=== PATIENT | male | born 1945 | race Caucasian/White ===

== ENCOUNTER 2019-08-06 11:46 | Emergency (ER) | payer OTHER ==
[2019-08-06 12:35] LABS: Urine RBC NONE SEEN /HPF (NONE SEEN)
[2019-08-06 12:36] LABS: Urine Bacteria <20 /HPF (NONE SEEN); Urine Culture Reflex Order NOT NEEDED
[2019-08-06 12:37] LABS: Basophils % 0.4 % (0-1.3); Hematocrit 45.9 % (39.6-49.0); Lymphocytes % 7.8 % (15.3-44.8); MPV 6.9 fL (7.6-11.3); RBC Red Blood Cell Count 4.87 M/uL (4.33-5.43)
[2019-08-06 12:42] LABS: Albumin 3.4 g/dL (3.4-5.0); Bilirubin Direct 0.3 mg/dL (0-0.2); Protein, Total 7.1 g/dL (6.4-8.2)
[2019-08-06 12:47] LABS: Urine Blood NEGATIVE (NEG); Urine Glucose NEGATIVE (NEG); Urine Protein NEGATIVE (NEG); Urine Specific Gravity 1.025 (1.005-1.030); Urine pH 5.5 (5.0-7.0)
--- NOTE | 2019-08-06 14:00 | RAD REPORT ---
EXAM DESCRIPTION: CTAbdomen Pelvis W Contrast - 08/06/2019 1:20 pm CLINICAL HISTORY: Abdominal pain. urinary retention COMPARISON: No comparisons TECHNIQUE: Biphasic CT imaging of the abdomen and pelvis was performed with 100 ml non-ionic IV cont rast. All CT scans are performed using dose optimization technique as appropriate and may include automated exposure control or mA/KV adjustment according to patient size. FINDINGS: Emphysematous changes are present in both lung bases. Vague areas subpleural nodularity ar e present bilaterally, greatest in the right lateral gutter measuring 12 mm. Mild fatty liver is seen with 32 mm cyst in the right lobe anteriorly. Small hiatal hernia. The splee n, pancreas, right adrenal gland and kidneys are within normal limits. No hydronephrosis. Small benig n renal cyst. Left adrenal gland thickening is present. There is a large amount of stool seen in the colon. Thickening of the rectosigmoid colon wall is pres ent. There is asymmetric thickening seen in the rectal region with the posterior rectal wall thickene d up to 20 mm. Catheter is in place in the urinary bladder decompressing the bladder. No intra-abdomi nal abscess seen. No free intraperitoneal air suspected. The appendix is normal. Fat containing bila teral inguinal hernias. No evidence of significant lymphadenopathy. Degenerative changes are present lumbar spine with vacuum disc degeneration at L5-S1. Heavy atheroscl erosis of the aorta and branch vessels. IMPRESSION: Thickening of the rectal wall was seen in an asymmetric fashion measure up to 20 mm post eriorly. Followup colonoscopy is recommended as neoplastic etiology is a possibility. Prominent fecal retention throughout the colon seen. Urinary bladder is decompressed by means of a Porter catheter. No hydronephrosis.
--- NOTE | 2019-08-06 14:18 | ER ---
Nurse's Notes [facility] Name: Huseyin Thompson Age: 74 yrs Sex: Male : 1945 Arrival Date: 08/06/2019 Time: 11:48 Bed 13 Private MD: Diagnosis: Retention of urine;Crohn's disease [regional enteritis];Constipation Presentation: 08/05 11:57 Chief complaint: Patient states: URINARY RETENTION x1.5 DAYS. Coronavirus screen: bp Proceed with normal triage. Ebola Screen: No symptoms or risks identified at this time. Initial Sepsis Screen: Does the patient meet any 2 criteria? No. Patient's initial sepsis screen is negative. Does the patient have a suspected source of infection? No. Patient's initial sepsis screen is negative. Risk Assessment: Do you want to hurt yourself or someone else? Patient reports no desire to harm self or others. Onset of symptoms is unknown. 11:57 Method Of Arrival: Wheelchair bp 11:57 Acuity: ANAM 3 bp Triage Assessment: 11:59 General: Appears in no apparent distress. uncomfortable, Behavior is cooperative, bp appropriate for age, anxious. Pain: Complains of pain in pelvis. EENT: No deficits noted. Neuro: No deficits noted. Cardiovascular: No deficits noted. Respiratory: No deficits noted. GI: No signs and/or symptoms were reported involving the gastrointestinal system. : Reports inability to void. Derm: No deficits noted. Musculoskeletal: No deficits noted. Historical: - Allergies: 11:59 No Known Allergies; bp - Home Meds: 11:59 Humira subcutaneous subcutaneous [Active]; Prednisone Oral [Active]; bp - PMHx: 11:59 Crohn's; bp - Immunization history:: Adult Immunizations unknown. - Social history:: Smoking status: Patient reports the use of cigarette tobacco products, unknown amount. Screenin:08 Abuse screen: Denies threats or abuse. Denies injuries from another. Nutritional bp screening: No deficits noted. Tuberculosis screening: No symptoms or risk factors identified. Fall Risk None identified. Assessment: 12:00 General: SEE TRIAGE NOTE. bp 13:30 Reassessment: S/S RELIEVED WITH DEL CASTILLO DRAINAGE. CT RESULTS PENDING. bp 14:45 Reassessment: PT D/C HOME AMBULATORY. DEL CASTILLO CHANGED TO LEG BAG. DX WITH URINARY bp RETENTION. Vital Signs: 11:57 BP 182 / 92; Pulse 97; Resp 16; Temp 98; Pulse Ox 98% ; Weight 83.91 kg; Height 5 ft. 8 bp in. (172.72 cm); 12:20 BP 116 / 68; Pulse 93; Resp 15; Pulse Ox 96% ; bp 13:16 BP 143 / 73; Pulse 74; Resp 16; Pulse Ox 94% on R/A; mh5 11:57 Body Mass Index 28.13 (83.91 kg, 172.72 cm) bp ED Course: 11:48 Patient arrived in ED. ag5 11:50 Devan Mcqueen, RAFAEL is PHCP. pm1 11:50 Roddy Moseley MD is Attending Physician. pm1 11:57 Jluis Rubin, SOLEDAD is Primary Nurse. bp 11:58 Triage completed. bp 11:59 Arm band placed on. bp 12:08 Patient has correct armband on for positive identification. Bed in low position. Call bp light in reach. Side rails up X2. 12:08 Bladder scan completed. 825 ML. Coud inserted, using sterile technique, 14 Fr. bp Returned cloudy urine. To gravity drainage. Urine specimen collected. 12:12 Radiology exam delayed due to lab results not completed at this time. (BUN/Creatinine). bq 12:20 Inserted saline lock: 20 gauge in right forearm, using aseptic technique. Blood bp collected. 12:21 Urine collected: Del Castillo catheter specimen, clear. mh5 13:20 CT completed. Patient tolerated procedure well. Patient moved back from CT. bq 13:21 CT Abd/Pelvis - IV Contrast Only In Process Unspecified. EDMS 14:43 IV discontinued, Pressure dressing applied. LEG BAG. mh5 14:48 No provider procedures requiring assistance completed. bp 14:48 IV discontinued, intact, bleeding controlled, No redness/swelling at site. Pressure bp dressing applied. Administered Medications: 14:45 Drug: Potassium Effervescent Tablet 50 mEq Route: PO; bp 14:48 Follow up: Response: No adverse reaction bp Outcome: 14:18 Discharge ordered by MD. pm1 14:47 Discharged to home ambulatory. bp 14:47 Condition: stable 14:47 Discharge instructions given to patient, Instructed on discharge instructions, follow up and referral plans. medication usage, Demonstrated understanding of instructions, follow-up care, medications, Prescriptions given X 2. 14:49 Patient left the ED. bp Signatures: Dispatcher [employer] EDElvi Emery Patrick, RAFAEL TALENT ACQUISITION DIRECTOR [email or web address] Mirtha Molina 5 Jluis Rubin, RN RN bp Miguel Gomez ag5
--- NOTE | 2019-08-06 14:18 | EDPHYS ---
Physician Documentation [facility] Name: Huseyin Thompson Age: 74 yrs Sex: Male : 1945 Arrival Date: 08/06/2019 Time: 11:48 Bed 13 Private MD: ED Physician Roddy Moseley HPI: 08/05 12:06 This 74 yrs old Male presents to ER via Wheelchair with complaints of Urinary Problem. pm1 12:06 The patient presents with urinary symptoms, retention. Onset: The symptoms/episode pm1 began/occurred 1.5 day(s) ago. Modifying factors: The symptoms are alleviated by a little urination. Reports dribbling, the symptoms are aggravated by nothing. Associated signs and symptoms: Pertinent negatives: constipation, diarrhea, fever, nausea, vomiting. Severity of symptoms: in the emergency department the symptoms are actually worse. no retention in the past, but has had to urinate multiple times throughout the night for several years. The patient has not recently seen a physician, out of town, in just moved to the area 1.5 weeks ago. Historical: - Allergies: 11:59 No Known Allergies; bp - Home Meds: 11:59 Humira subcutaneous subcutaneous [Active]; Prednisone Oral [Active]; bp - PMHx: 11:59 Crohn's; bp - Immunization history:: Adult Immunizations unknown. - Social history:: Smoking status: Patient reports the use of cigarette tobacco products, unknown amount. ROS: 12:06 Constitutional: Negative for fever, chills, and weight loss, Cardiovascular: Negative pm1 for chest pain, palpitations, and edema, Respiratory: Negative for shortness of breath, cough, wheezing, and pleuritic chest pain. 12:06 Back: Negative for injury and pain. 12:06 MS/Extremity: Negative for injury and deformity, Skin: Negative for injury, rash, and discoloration, Neuro: Negative for headache, weakness, numbness, tingling, and seizure. 12:06 Abdomen/GI: Positive for abdominal pain, of the suprapubic area, Negative for nausea, vomiting, and diarrhea, constipation. 12:06 : Positive for difficulty urinating, retention , Negative for flank pain, burning with urination. Exam: 12:06 Constitutional: This is a well developed, well nourished patient who is awake, alert, pm1 and in no acute distress. Head/Face: Normocephalic, atraumatic. Neck: Trachea midline, no thyromegaly or masses palpated, and no cervical lymphadenopathy. Supple, full range of motion without nuchal rigidity, or vertebral point tenderness. No Meningismus. Chest/axilla: Normal chest wall appearance and motion. Nontender with no deformity. No lesions are appreciated. Cardiovascular: Regular rate and rhythm with a normal S1 and S2. No gallops, murmurs, or rubs 12:06 Back: No spinal tenderness. No costovertebral tenderness. Full range of motion. Skin: Warm, dry with normal turgor. Normal color with no rashes, no lesions, and no evidence of cellulitis. MS/ Extremity: Pulses equal, no cyanosis. Neurovascular intact. Full, normal range of motion. 12:06 Respiratory: the patient does not display signs of respiratory distress, Respirations: normal, no acute changes. 12:06 Abdomen/GI: Inspection: abdomen appears normal, Bowel sounds: normal, Palpation: soft, in all quadrants, mild abdominal tenderness, in the suprapubic area, mass, is not appreciated, rebound tenderness, is not appreciated. 12:06 Neuro: Exam negative for acute changes, Orientation: is normal, Motor: is normal, moves all fours. Vital Signs: 11:57 BP 182 / 92; Pulse 97; Resp 16; Temp 98; Pulse Ox 98% ; Weight 83.91 kg; Height 5 ft. 8 bp in. (172.72 cm); 12:20 BP 116 / 68; Pulse 93; Resp 15; Pulse Ox 96% ; bp 13:16 BP 143 / 73; Pulse 74; Resp 16; Pulse Ox 94% on R/A; mh5 11:57 Body Mass Index 28.13 (83.91 kg, 172.72 cm) bp MDM: 11:50 Patient medically screened. pm1 12:07 ED course: Bladder scanner 852 mL. pm1 12:28 Data reviewed: vital signs. Data interpreted: Pulse oximetry: on room air is 96 %. pm1 Interpretation: normal. 14:17 Counseling: I had a detailed discussion with the patient and/or guardian regarding: the pm1 historical points, exam findings, and any diagnostic results supporting the discharge/admit diagnosis, lab results, radiology results, the need for outpatient follow up, a lacing cutter, a urologist, to return to the emergency department if symptoms worsen or persist or if there are any questions or concerns that arise at home. 08/05 11:55 Order name: Basic Metabolic Panel; Complete Time: 12:44 pm08/05 11:55 Order name: CBC with Diff; Complete Time: 12:44 pm08/05 11:55 Order name: Creatinine for Radiology; Complete Time: 12:44 pm08/05 11:55 Order name: Hepatic Function; Complete Time: 12:44 pm08/05 11:55 Order name: Lipase; Complete Time: 12:44 pm08/05 11:55 Order name: Urine Microscopic Only; Complete Time: 12:44 pm08/05 11:55 Order name: IV Saline Lock; Complete Time: 12:19 pm08/05 11:55 Order name: Labs collected and sent; Complete Time: 12:19 pm08/05 11:55 Order name: CT Abd/Pelvis - IV Contrast Only; Complete Time: 14:02 pm08/05 11:55 Order name: Bladder Scanner; Complete Time: 12:10 pm08/05 11:55 Order name: Porter; Complete Time: 12:10 pm08/05 11:55 Order name: Urine Dipstick-Ancillary (obtain specimen); Complete Time: 12:18 pm08/05 12:24 Order name: Urine Dipstick--Ancillary (enter results); Complete Time: 12:54 eb Administered Medications: 14:45 Drug: Potassium Effervescent Tablet 50 mEq Route: PO; bp 14:48 Follow up: Response: No adverse reaction bp Disposition: 15:40 Co-signature as Attending Physician, Roddy Moseley MD. rn Disposition: 08/06/19 14:18 Discharged to Home. Impression: Retention of urine, Crohn's disease [regional enteritis], Constipation. - Condition is Stable. - Discharge Instructions: Constipation, Adult, Crohn Disease, Porter Catheter Care, Adult, Acute Urinary Retention, Male. - Prescriptions for Bactrim DS 800- 160 mg Oral Tablet - take 1 tablet by ORAL route every 12 hours for 10 days; 20 tablet. Lactulose 10 gram/15 mL Oral Solution - take 30 milliliters by ORAL route once daily As needed; 300 milliliter. - Medication Reconciliation Form, Thank You Letter, Antibiotic Education, Prescription Opioid Use form. - Follow up: Emergency Department; When: As needed; Reason: Worsening of condition. Follow up: Private Physician; When: 2 - 3 days; Reason: Recheck today's complaints, Continuance of care, Re-evaluation by your physician. - Problem is new. - Symptoms have improved. Signatures: Dispatcher [employer] EDMS Roddy Moseley MD MD rn Marinas, Patrick, CRYSTAL MOUNTER CRYSTAL MOUNTER pm1 Jluis Rubin RN RN bp Corrections: (The following items were deleted from the chart) 14:21 14:18 08/06/2019 14:18 Discharged to Home. Impression: Retention of urine. Condition is pm1 Stable. Forms are Medication Reconciliation Form, Thank You Letter, Antibiotic Education, Prescription Opioid Use. Follow up: Emergency Department; When: As needed; Reason: Worsening of condition. Follow up: Private Physician; When: 2 - 3 days; Reason: Recheck today's complaints, Continuance of care, Re-evaluation by your physician. Problem is new. Symptoms have improved. pm1 14:29 14:21 08/06/2019 14:18 Discharged to Home. Impression: Retention of urine; Crohn's pm1 disease [regional enteritis]. Condition is Stable. Discharge Instructions: Porter Catheter Care, Adult, Acute Urinary Retention, Male, Crohn Disease. Prescriptions for Bactrim DS 800-160 mg Oral Tablet - take 1 tablet by ORAL route every 12 hours for 10 days; 20 tablet. and Forms are Medication Reconciliation Form, Thank You Letter, Antibiotic Education, Prescription Opioid Use. Follow up: Emergency Department; When: As needed; Reason: Worsening of condition. Follow up: Private Physician; When: 2 - 3 days; Reason: Recheck today's complaints, Continuance of care, Re-evaluation by your physician. Problem is new. Symptoms have improved. pm1 14:49 14:29 08/06/2019 14:18 Discharged to Home. Impression: Retention of urine; Crohn's bp disease [regional enteritis]; Constipation. Condition is Stable. Discharge Instructions: Porter Catheter Care, Adult, Acute Urinary Retention, Male, Crohn Disease. Prescriptions for Bactrim DS 800-160 mg Oral Tablet - take 1 tablet by ORAL route every 12 hours for 10 days; 20 tablet. and Forms are Medication Reconciliation Form, Thank You Letter, Antibiotic Education, Prescription Opioid Use. Follow up: Emergency Department; When: As needed; Reason: Worsening of condition. Follow up: Private Physician; When: 2 - 3 days; Reason: Recheck today's complaints, Continuance of care, Re-evaluation by your physician. Problem is new. Symptoms have improved. pm1
[2019-08-06] MEDS ORDERED: POTASSIUM 25 MEQ EFFERV TAB ONE (14:38)
[2019-08-06 15:09] VITALS: TEMP 98
[2019-08-06 15:12] VITALS: BP 143/73; O2SAT 94
== END 2019-08-06 14:49 | disposition home or self-care (01) ==
LOC: ER 11:46
DX: K59.00 Constipation, unspecified (principal); K50.90 Crohn's disease, unspecified, without complications; Z72.0 Tobacco use
CPT/HCPCS: 85025; 80048; 36415; 80076; 83690; 74177; 99285; Q9967; 81003; 81015

== ENCOUNTER 2019-11-30 10:13 | Observation (INO) | payer OTHER ==
[2019-11-30 10:58] LABS: Absolute Lymphocytes (CBC) 1.1 K/uL (0.7-4.9); Basophils % 0.3 % (0-1.3); Hematocrit 37.6 % (39.6-49.0); Lymphocytes % 9.2 % (15.3-44.8); MPV 7.5 fL (7.6-11.3)
[2019-11-30] MEDS ORDERED: NA CHLORIDE 0.9% 1,000 ML ONE ×2 (10:58→12:36)
[2019-11-30 10:59] LABS: Protime INR 1.23
--- NOTE | 2019-11-30 11:28 | RAD REPORT ---
EXAM DESCRIPTION: Julian Single View11/30/2019 11:20 am CLINICAL HISTORY: sob COMPARISON: none FINDINGS: The lungs appear clear of acute infiltrate. The heart is normal size IMPRESSION: No acute abnormalities displayed
[2019-11-30 11:46] LABS: Albumin 2.6 g/dL (3.4-5.0); Bilirubin Direct 0.2 mg/dL (0-0.2); Bilirubin Total 0.6 mg/dL (0.2-1.0); Magnesium 1.8 mg/dL (1.8-2.4); Protein, Total 6.3 g/dL (6.4-8.2); Troponin (Emerg Dept Use Only) 0.04 ng/mL (0.0-0.045)
[2019-11-30 11:47] LABS: Thyroid Stimulating Hormone 1.51 uIU/mL (0.360-3.740)
[2019-11-30 11:50] LABS: Potassium 2.5 mmol/L (3.5-5.1)
[2019-11-30] MEDS ORDERED: KCL 20 MEQ/100 mL IVPB 20 MEQ/100 ML BAG IV ONE (12:09)
[2019-11-30] MEDS ORDERED: ENOXAPARIN 80 MG/0.8 ML SQ ONE (12:09)
[2019-11-30] MEDS ORDERED: POTASSIUM CL SA 10 MEQ TAB PO ONE ×2 (12:09→18:00)
[2019-11-30] MEDS ORDERED: NA CHLORIDE 0.9% 250 ML ONE (12:10)
--- NOTE | 2019-11-30 12:10 | ER ---
Nurse's Notes [facility] Name: Huseyin Thompson Age: 74 yrs Sex: Male : 1945 Arrival Date: 11/30/2019 Time: 10:17 Bed 17 Private MD: Diagnosis: Atrial fibrillation and flutter-with RVR new onset;Hypotension;Hypokalemia Presentation: 11/29 10:21 Chief complaint: Patient states: Pt presents via EMS with reports of trip and fall with jr10 generalized weakness in driveway. Per EMS pt was laying in driveway for approx 45 mins after fall and was unable to get up. Pt AAOx4 upon arrival, denies LOC, denies the use of blood thinners. Pt noted to be in a fib upon arrival, denies any hx. Denies cp. Coronavirus screen: Client denies travel out of the [place] in the last 14 days. Patient denies a cough. Patient denies shortness of breath or difficulty breathing. Patient denies measured and/or subjective temperature greater than 100.4F prior to today's visit. Patient denies travel on a cruise ship or to a country the [facility] currently lists as an affected area. Patient denies contact with known and/or suspected case of COVID-19. At this time, the client does not indicate any symptoms associated with coronavirus-19. Ebola Screen: No symptoms or risks identified at this time. Initial Sepsis Screen: Does the patient meet any 2 criteria? HR > 90 bpm. Does the patient have a suspected source of infection? No. Patient's initial sepsis screen is negative. Risk Assessment: Do you want to hurt yourself or someone else? Patient reports no desire to harm self or others. Onset of symptoms was November 30, 2019. 10:21 Method Of Arrival: EMS: [facility] jr10 10:21 Acuity: ANAM 2 jr10 Historical: - Allergies: 10:23 No Known Allergies; jr10 - Home Meds: 10:23 Humira subcutaneous [Active]; Prednisone Oral [Active]; atorvastatin oral oral jr10 [Active]; Flagyl Oral [Active]; - PMHx: 10:23 Crohn's; jr10 - Immunization history:: Adult Immunizations up to date. - Social history:: Smoking status: Patient reports the use of cigarette tobacco products, smokes one pack cigarettes per day. Patient uses alcohol, weekly. Screenin:30 Abuse screen: Denies threats or abuse. Denies injuries from another. Nutritional jr10 screening: No deficits noted. Tuberculosis screening: No symptoms or risk factors identified. Fall Risk Fall in past 12 months (25 points). No secondary diagnosis (0 pts). IV access (20 points). Ambulatory Aid- None/Bed Rest/Nurse Assist (0 pts). Gait- Weak (10 pts.). Mental Status- Oriented to own ability (0 pts). Assessment: 10:24 General: Appears in no apparent distress. Behavior is calm, cooperative, appropriate jr10 for age. Pain: Denies pain. Neuro: No deficits noted. Cardiovascular: Denies chest pain, denies hx of a fib, currently noted to be in a fib rvr Capillary refill < 3 seconds Pulses are all present. Edema is absent. Rhythm is atrial fibrillation with rapid ventricular response Chest pain is denied. Respiratory: Reports shortness of breath at rest Airway is patent Respiratory effort is even, unlabored, Respiratory pattern is regular, symmetrical, Breath sounds are clear bilaterally. the patient has mild shortness of breath. GI: No deficits noted. Reports hx of crohns, denies any n/v/d at present. : No deficits noted. Derm: No deficits noted. Musculoskeletal: Reports weakness in generalized weakness. Injury Description: Abrasion sustained to palmar aspect of left forearm. 10:31 Reassessment: pt noted to be in a fib rvr upon arrival, provider notified and aware. jr10 EKG obtained upon arrival. 13:48 Reassessment: Patient appears in no apparent distress at this time. Patient and/or jr10 family updated on plan of care and expected duration. Pain level reassessed. Patient is alert, oriented x 3, equal unlabored respirations, skin warm/dry/pink. Patient states symptoms have improved. Vital Signs: 10:17 BP 99 / 59; Pulse 136; Resp 20; Pulse Ox 95% on R/A; Weight 77.11 kg; Pain 0/10; jr10 10:51 BP 117 / 49; Pulse 147; Resp 20; Pulse Ox 100% on R/A; Pain 0/10; jr10 11:18 BP 97 / 54; Pulse 107; Resp 20; Pulse Ox 96% on R/A; jr10 11:44 BP 121 / 53; Pulse 115; Resp 20; Pulse Ox 95% on R/A; Pain 0/10; jr10 12:15 BP 121 / 53; Pulse 118; Resp 22; Pulse Ox 97% on R/A; jr10 13:00 BP 121 / 72; Pulse 105; Resp 20; Pulse Ox 95% on R/A; Pain 0/10; jr10 13:00 BP 135 / 71; Pulse 90; Resp 20; Pulse Ox 98% on R/A; jr10 13:47 BP 118 / 83; Pulse 88; Resp 16; Pulse Ox 92% ; jr10 ED Course: 10:17 Patient arrived in ED. jr10 10:17 Jeffery Kearney PA is PHCP. jr8 10:17 Bert Valdovinos MD is Attending Physician. jr8 10:22 Triage completed. jr10 10:24 Arm band placed on. jr10 10:30 Patient has correct armband on for positive identification. Placed in gown. Bed in low jr10 position. Call light in reach. Side rails up X2. bow maker gift wrapping on. Pulse ox on. NIBP on. 10:44 Dianna Gill, SOLEDAD is Primary Nurse. jr10 10:50 No provider procedures requiring assistance completed. Inserted saline lock: 20 gauge jr10 in right forearm, using aseptic technique. ,using aseptic technique. started via Lorie, PCT Blood collected. IV is patent, is intact, with good blood return, Flushed. 11:20 XRAY Chest (1 view) In Process Unspecified. EDMS 12:08 Sinan Barcenas MD is Hospitalizing Provider. jr8 14:48 Echocardiogram with doppler done by e d tech. tc 15:04 Patient admitted, IV remains in place. intact, No redness/swelling at site. jr10 Administered Medications: 10:50 Drug: NS 0.9% 1000 ml Route: IV; Rate: 1000 ml; Site: right forearm; jr10 14:00 Follow up: Response: No adverse reaction; IV Status: Completed infusion jr10 12:09 Drug: Potassium Chloride 40 mEq Route: PO; jr10 12:42 Follow up: Response: No adverse reaction jr10 12:09 Drug: Potassium Chloride 20 mEq Route: IV; Rate: calculated rate; Site: right forearm; jr10 14:00 Follow up: Response: No adverse reaction; IV Status: Completed infusion jr10 12:11 Drug: Lovenox 1 mg/kg Route: Sub-Q; Site: abdomen; jr10 12:42 Follow up: Response: No adverse reaction jr10 12:30 Drug: Metoprolol 25 mg Route: PO; jr10 15:03 Follow up: Response: No adverse reaction jr10 12:30 Drug: NS 0.9% 1000 ml Route: IV; Rate: 75 ml/hr; Site: right forearm; jr10 15:02 Follow up: Response: No adverse reaction; IV Status: Infusion continued upon admission jr10 Outcome: 12:09 Decision to Hospitalize by Provider. jr8 15:10 Admitted to Med/surg accompanied by tech, via wheelchair, room 211, Report called to jr10 SOLEDAD [place] 15:10 Condition: improved 15:19 Patient left the ED. jr10 Signatures: Dispatcher [employer] EDMS Jeffery Kearney PA PA jr8 Janelle Le, silver solderer EKG Dianna Escalante, RN RN jr10 Corrections: (The following items were deleted from the chart) 12:10 12:10 Lovenox 1 mg/kg Sub-Q in abdomen jr10 jr10
--- NOTE | 2019-11-30 12:10 | EDPHYS ---
Physician Documentation [facility] Name: Huseyin Thompson Age: 74 yrs Sex: Male : 1945 Arrival Date: 11/30/2019 Time: 10:17 Bed 17 Private MD: ED Physician Bert Valdovinos HPI: 11/29 10:49 This 74 yrs old Male presents to ER via EMS with complaints of Fall . jr8 10:49 Details of fall: The patient fell from an upright position, while standing. Onset: The jr8 symptoms/episode began/occurred acutely, today. Associated injuries: The patient sustained no obvious injury. Severity of symptoms: At their worst the symptoms were mild, in the emergency department the symptoms are unchanged. The patient has not experienced similar symptoms in the past. The patient has not recently seen a physician. 11:32 Patient stated that he tripped while outside and fell. Could not get up so called 911. jr8 Stated that after they helped him up felt very weak and fatigued. Mild dizziness. EMS checked him out and found found that his BP was low. Was brought to hospital at that time. Patient denies hitting head or neck. No LOC. Denies any other symptoms at this time . Historical: - Allergies: 10:23 No Known Allergies; jr10 - Home Meds: 10:23 Humira subcutaneous [Active]; Prednisone Oral [Active]; atorvastatin oral oral jr10 [Active]; Flagyl Oral [Active]; - PMHx: 10:23 Crohn's; jr10 - Immunization history:: Adult Immunizations up to date. - Social history:: Smoking status: Patient reports the use of cigarette tobacco products, smokes one pack cigarettes per day. Patient uses alcohol, weekly. ROS: 11:32 Eyes: Negative for injury, pain, redness, and discharge, ENT: Negative for injury, jr8 pain, and discharge, Neck: Negative for injury, pain, and swelling, Cardiovascular: Negative for chest pain, palpitations, and edema, Respiratory: Negative for shortness of breath, cough, wheezing, and pleuritic chest pain, Abdomen/GI: Negative for abdominal pain, nausea, vomiting, diarrhea, and constipation, Back: Negative for injury and pain, MS/Extremity: Negative for injury and deformity, Skin: Negative for injury, rash, and discoloration. 11:32 Constitutional: Positive for fatigue. 11:32 Neuro: Positive for dizziness, weakness. Exam: 11:32 Eyes: Pupils equal round and reactive to light, extra-ocular motions intact. Lids and jr8 lashes normal. Conjunctiva and sclera are non-icteric and not injected. Cornea within normal limits. Periorbital areas with no swelling, redness, or edema. ENT: Nares patent. No nasal discharge, no septal abnormalities noted. Tympanic membranes are normal and external auditory canals are clear. Oropharynx with no redness, swelling, or masses, exudates, or evidence of obstruction, uvula midline. Mucous membranes moist. Neck: Trachea midline, no thyromegaly or masses palpated, and no cervical lymphadenopathy. Supple, full range of motion without nuchal rigidity, or vertebral point tenderness. No Meningismus. Respiratory: Lungs have equal breath sounds bilaterally, clear to auscultation and percussion. No rales, rhonchi or wheezes noted. No increased work of breathing, no retractions or nasal flaring. Abdomen/GI: Soft, non-tender, with normal bowel sounds. No distension or tympany. No guarding or rebound. No evidence of tenderness throughout. Back: No spinal tenderness. No costovertebral tenderness. Full range of motion. Skin: Warm, dry with normal turgor. Normal color with no rashes, no lesions, and no evidence of cellulitis. MS/ Extremity: Pulses equal, no cyanosis. Neurovascular intact. Full, normal range of motion. Neuro: Awake and alert, GCS 15, oriented to person, place, time, and situation. Cranial nerves II-XII grossly intact. Motor strength 5/5 in all extremities. Sensory grossly intact. Cerebellar exam normal. 11:32 Cardiovascular: Rate: tachycardic, Rhythm: irregularly irregular, Pulses: Pulses are 2+ in right radial artery and left radial artery. Heart sounds: normal, normal S1and S2, no S3 or S4, no murmur, no rub, no gallop, Edema: is not appreciated, JVD: is not appreciated. 11:36 ECG was reviewed by the Attending Physician. jr8 Vital Signs: 10:17 BP 99 / 59; Pulse 136; Resp 20; Pulse Ox 95% on R/A; Weight 77.11 kg; Pain 0/10; jr10 10:51 BP 117 / 49; Pulse 147; Resp 20; Pulse Ox 100% on R/A; Pain 0/10; jr10 11:18 BP 97 / 54; Pulse 107; Resp 20; Pulse Ox 96% on R/A; jr10 11:44 BP 121 / 53; Pulse 115; Resp 20; Pulse Ox 95% on R/A; Pain 0/10; jr10 12:15 BP 121 / 53; Pulse 118; Resp 22; Pulse Ox 97% on R/A; jr10 13:00 BP 121 / 72; Pulse 105; Resp 20; Pulse Ox 95% on R/A; Pain 0/10; jr10 13:00 BP 135 / 71; Pulse 90; Resp 20; Pulse Ox 98% on R/A; jr10 13:47 BP 118 / 83; Pulse 88; Resp 16; Pulse Ox 92% ; jr10 MDM: 10:17 Patient medically screened. jr8 12:07 Data reviewed: vital signs, nurses notes, lab test result(s), EKG, radiologic studies, jr8 plain films. Data interpreted: Pulse oximetry: on room air is 95 %. Interpretation: normal. Counseling: I had a detailed discussion with the patient and/or guardian regarding: the historical points, exam findings, and any diagnostic results supporting the discharge/admit diagnosis, lab results, radiology results, the need for further work-up and treatment in the hospital. ED course: Silverio Cheng PA-C called and accepted patient under Dr. Barcenas for atrial fib with RVR, dehydration, hypotension, and hypokalemia . 11/29 10:41 Order name: Basic Metabolic Panel; Complete Time: :11/29 10:41 Order name: CBC with Diff; Complete Time: 11:11/29 10:41 Order name: LFT's; Complete Time: 11:11/29 10:41 Order name: Magnesium; Complete Time: 11:11/29 10:41 Order name: NT PRO-BNP; Complete Time: :11/29 10:41 Order name: PT-INR; Complete Time: 11:11/29 10:41 Order name: Troponin (emerg Dept Use Only); Complete Time: 11:11/29 10:41 Order name: XRAY Chest (1 view); Complete Time: 11:37 11/29 10:42 Order name: TSH; Complete Time: 11:50 11/29 10:42 Order name: T4 Free; Complete Time: 11/29 10:41 Order name: EKG; Complete Time: 10:11/29 10:41 Order name: Cardiac monitoring; Complete Time: :11/29 10:41 Order name: EKG - Nurse/Tech; Complete Time: 11/29 10:41 Order name: IV Saline Lock; Complete Time: 11/29 10:41 Order name: Labs collected and sent; Complete Time: 11/29 10:41 Order name: O2 Per Protocol; Complete Time: 11/29 10:41 Order name: O2 Sat Monitoring; Complete Time: 11/29 13:04 Order name: CONS Physician Consult EDMS EC:36 Rate is 137 beats/min. Rhythm is irregularly irregular, A fib. Right axis deviation jr8 noted. QRS interval is prolonged at 136 msec. QT interval is normal. No Q waves. T waves are Normal. No ST changes noted. Clinical impression: Atrial Fibrillation. Interpreted by me. Reviewed by me. Administered Medications: 10:50 Drug: NS 0.9% 1000 ml Route: IV; Rate: 1000 ml; Site: right forearm; jr10 14:00 Follow up: Response: No adverse reaction; IV Status: Completed infusion 10 12:09 Drug: Potassium Chloride 40 mEq Route: PO; jr10 12:42 Follow up: Response: No adverse reaction 10 12:09 Drug: Potassium Chloride 20 mEq Route: IV; Rate: calculated rate; Site: right forearm; jr10 14:00 Follow up: Response: No adverse reaction; IV Status: Completed infusion jr10 12:11 Drug: Lovenox 1 mg/kg Route: Sub-Q; Site: abdomen; jr10 12:42 Follow up: Response: No adverse reaction 10 12:30 Drug: Metoprolol 25 mg Route: PO; jr10 15:03 Follow up: Response: No adverse reaction 10 12:30 Drug: NS 0.9% 1000 ml Route: IV; Rate: 75 ml/hr; Site: right forearm; jr10 15:02 Follow up: Response: No adverse reaction; IV Status: Infusion continued upon admission jr10 Disposition: 17:40 Co-signature as Attending Physician, Bert Valdovinos MD I agree with the assessment and kdr plan of care. Disposition: 11/30/19 12:09 Hospitalization ordered by Sinan Barcenas for Inpatient Admission. Preliminary diagnosis are Atrial fibrillation and flutter - with RVR new onset, Hypotension, Hypokalemia. - Bed requested for Telemetry/MedSurg (Inpatient). - Status is Inpatient Admission. jr10 - Condition is Stable. - Problem is new. - Symptoms have improved. Signatures: Dispatcher [employer] EDMS Lakeshia Chawla RN RN dw Bert Valdovinos MD MD kdr Roszak, Josh, PA PA jr8 Dianna Gill RN RN jr10 Corrections: (The following items were deleted from the chart) 14:44 12:09 Hospitalization Ordered by Sinan Barcenas MD for Inpatient Admission. Preliminary dw diagnosis is Atrial fibrillation and flutter - with RVR new onset; Hypotension; Hypokalemia. Bed requested for Telemetry/MedSurg (Inpatient). Status is Inpatient Admission. Condition is Stable. Problem is new. Symptoms have improved. jr8 15:19 14:44 11/30/2019 12:09 Hospitalization Ordered by Sinan Barcenas MD for Inpatient [facility] Admission. Preliminary diagnosis is Atrial fibrillation and flutter - with RVR new onset; Hypotension; Hypokalemia. Bed requested for Telemetry/MedSurg (Inpatient). Status is Inpatient Admission. Condition is Stable. Problem is new. Symptoms have improved. dw
[2019-11-30] MEDS ORDERED: METOPROLOL TAR 25 MG TAB ONE (12:36)
[2019-11-30] MEDS ORDERED: ACETAMINOPHEN 500 MG TAB PO PRN (13:04)
[2019-11-30] MEDS ORDERED: ONDANSETRON 4 MG/2 ML VIAL IV PRN (13:04)
--- NOTE | 2019-11-30 13:13 | P.HP ---
Certification for Inpatient Patient admitted to: Observation With expected LOS: <2 Midnights Patient will require the following post-hospital care: None Practitioner: I am a practitioner with admitting privileges, knowledge of patient current condition, hospital course, and medical plan of care. Services: Services provided to patient in accordance with Admission requirements found in Title 42 Section 412.3 of the Code of Federal Regulations <Henrique Cheng - Last Filed: 11/30/19 13:15> Patient History Date of Service: 11/30/19 Reason for admission: New onset AFib with RVR History of Present Illness: 73-year-old male with a past medical history of Crohn's disease, BPH and alcohol abuse presents to the emergency room complaining of ground level fall. Patient states that he fell from an upright position while standing. It happened acutely today and states he has never had issues like this in the past. Denies any loss of consciousness. States she did not sustain an obvious injury. Patient states he was headed to the urologist office when this happened. States that he was walking and tripped and after the fall could not get up. That is when he called 911. Patient states that 1 EMS arrived and helped him get up he felt weak and fatigued. Patient was brought to the ER via EMS. On examination in the ER patient is found to be in abnormal rhythm of atrial fibrillation and with RVR. Patient states is a new finding. Patient is alert and oriented x4 and in no distress. He is not requiring O2 support. Patient was also noted to be hypotensive on arrival to the ED. He was bolused with IV fluids which improved his blood pressure. Latest blood pressure reading was 121/53 with a heart rate ranging between 96 and 115. Patient was also given metoprolol 25 mg p.o. which helped the heart rate. Blood work shows hypokalemia with a potassium level of 2.5 on arrival. Currently being replaced with 20 IV a nd 40 p.o. of potassium. Patient will be placed in observation and further evaluated. Will consult Cardiology. Home medications list reviewed: No - Past Medical/Surgical History Diabetic: No -: Crohn's disease -: Eye surgery -: Ankle surgery Psychosocial/ Personal History: Patient lives at home alone. - Family History Family History: Reviewed- Non-Contributory - Social History Smoking Status: Current every day smoker Patient receptive to therapy: No Alcohol use: Yes CD- Drugs: No Caffeine use: No Place of Residence: Home <Henrique Cheng - Last Filed: 11/30/19 13:15> Date of Service: 11/30/19 <Gaetano Barcenas - Last Filed: 11/30/19 14:30> Allergies No Known Allergies Allergy (Unverified 11/30/19 13:18) Review of Systems General: Weakness, Other (Fatigue), As per HPI Eyes: Unremarkable ENT: Unremarkable Respiratory: Unremarkable Cardiovascular: Light Headedness Gastrointestinal: Unremarkable Genitourinary: Unremarkable Musculoskeletal: Unremarkable Integumentary: Unremarkable Neurological: Unremarkable <Henrique Cheng - Last Filed: 11/30/19 13:15> Physical Examination - Vital Signs Blood Pressure: 121/53 Pulse: 115 Respirations: 20 Pulse Ox (%): 95 (RA) - Physical Exam General: Alert, In no apparent distress, Oriented x3, Cooperative HEENT: Atraumatic, Normocephalic, PERRLA Neck: Supple, Other (Trachea midline) Respiratory: Clear to auscultation bilaterally, Normal air movement Cardiovascular: No edema, Irregular heart rate/rhythm Capillary refill: <2 Seconds Gastrointestinal: Normal bowel sounds, Soft and benign, Non-distended Musculoskeletal: No clubbing, No swelling, No contractures, No erythema Integumentary: No rashes, No breakdown, No significant lesion Neurological: Normal speech, Normal strength at 5/5 x4 extr, Normal tone - Studies Laboratory Data (last 24 hrs) 11/30/19 10:40: PT 14.4 H, INR 1.23 11/30/19 10:40: WBC 12.2 H, Hgb 12.8 L, Hct 37.6 L, Plt Count 405 11/30/19 10:40: Sodium 139, Potassium 2.5 L*, BUN 10, Creatinine 0.98, Glucose 151 H, Magnesium 1.8, Total Bilirubin 0.6, AST 10 L, ALT 11 L, Alkaline Phosphatase 57 <Henrique Cheng - Last Filed: 11/30/19 13:15> - Studies Laboratory Data (last 24 hrs) 11/30/19 10:40: PT 14.4 H, INR 1.23 11/30/19 10:40: WBC 12.2 H, Hgb 12.8 L, Hct 37.6 L, Plt Count 405 11/30/19 10:40: Sodium 139, Potassium 2.5 L*, BUN 10, Creatinine 0.98, Glucose 151 H, Magnesium 1.8, Total Bilirubin 0.6, AST 10 L, ALT 11 L, Alkaline Phosphatase 57 <Gaetano Barcenas - Last Filed: 11/30/19 14:30> Assessment and Plan - Plan Impression: Acute new onset atrial fibrillation with RVR: Crohn's disease: Hypotension: Hypokalemia: Alcohol abuse: Nicotine abuse: Plan: Acute new onset atrial fibrillation with RVR: This is a new finding for the patient. Patient given metoprolol 25 mg p.o. in the ER which improved heart rate. Cardiology is consulted. Will order echocardiogram and place patient on telemetry. Full-dose Lovenox. Will await recommendations from Cardiology. Crohn's disease: Patient is currently on Humira for Crohn's disease. States he usually has loose stools. Hypotension: Likely resulting from poor fluid intake, chronic diarrhea from Crohn's disease and new onset atrial fibrillation. Will monitor blood pressure. Patient received IV fluids in the ER which improved his blood pressure. Will continue to monitor and adjust fluid intake accordingly. Will hold off on continuing metoprolol p.o. due to his hypotension on arrival. Will await Cardiology recommendations 1st. Hypokalemia: Likely secondary to chronic diarrhea. Will replace as necessary. Alcohol abuse: Admits to drinking a 6 pack of beer a day but states that he will go a week without drinking anything. Counseled greater than 15 min. Nicotine abuse: Patient states he smokes a pack of cigarettes every day. Patient does not want a nicotine patch at this time. Discharge Plan: Home Plan to discharge in: 48 Hours - Advance Directives Does patient have a Living Will: No Does patient have a Durable POA for Healthcare: No - Code Status/Comfort Care Code Status Assessed: Yes Time Spent Managing Pts Care (In Minutes): 45 <Henrique Cheng - Last Filed: 11/30/19 13:15> Physician Review Additional Text: Patient was seen and findings were discussed Agrees with the assessment and plan as documented by the JESSIKA <Gaetano Barcenas - Last Filed: 11/30/19 14:30>
[2019-11-30] MEDS ORDERED: NA CHLORIDE 0.9% 1,000 ML IV SCH (14:00)
[2019-11-30 15:34] VITALS: BMI 24.7
[2019-11-30] MEDS: KCL 20 MEQ/100 mL IVPB 20 MEQ/100 ML BAG IV SCH ×2 (18:17→20:40)
[2019-11-30 23:47] VITALS: O2SAT 96
[2019-12-01 00:41] LABS: Urine Appearance CLOUDY; Urine Blood NEGATIVE (NEG); Urine Color DK YELLOW; Urine Glucose NEGATIVE (NEG); Urine Protein NEGATIVE (NEG); Urine pH 6.5 (5.0-7.0)
[2019-12-01 00:42] LABS: Urine Microscopic Reflex ORDER UMIC
[2019-12-01 01:24] LABS: Urine Bilirubin NEGATIVE (NEG)
[2019-12-01 01:27] LABS: Urine Bacteria LOADED /HPF (NONE SEEN); Urine Culture Reflex Order REFLEXED; Urine RBC NONE SEEN /HPF (NONE SEEN)
[2019-12-01 05:37] LABS: Absolute Lymphocytes (CBC) 1.5 K/uL (0.7-4.9); Basophils % 0.5 % (0-1.3); Lymphocytes % 15.9 % (15.3-44.8); MPV 7.2 fL (7.6-11.3); RBC Red Blood Cell Count 3.66 M/uL (4.33-5.43)
[2019-12-01 05:44] LABS: BUN Blood Urea Nitrogen 10 mg/dL (7-18); Bicarbonate 34 mmol/L (21-32); Glucose Level 101 mg/dL (74-106); Potassium 3.1 mmol/L (3.5-5.1); Sodium Level 141 mmol/L (136-145)
[2019-12-01 08:19] VITALS: TEMP 98.4
[2019-12-01] MEDS ORDERED: CEFTRIAXONE/SWI 1gm 1 GM/10 ML SYR IV SCH (09:00)
[2019-12-01] MEDS ORDERED: ENOXAPARIN 80 MG/0.8 ML SQ SCH (09:00)
[2019-12-01] MEDS ORDERED: POTASSIUM 25 MEQ EFFERV TAB PO ONE (09:00)
[2019-12-01] MEDS ORDERED: ENOXAPARIN 40 MG/0.4 ML SQ SCH (09:00)
--- NOTE | 2019-12-01 10:53 | P.PN ---
Subjective Date of Service: 12/01/19 Chief Complaint: New onset AFib with RVR Subjective: Improving, Doing well Heart rate better controlled. Echocardiogram complete results pending. Review of Systems General: As per HPI Eyes: Unremarkable ENT: Unremarkable Respiratory: Unremarkable Cardiovascular: As per HPI Gastrointestinal: Unremarkable Genitourinary: Unremarkable Musculoskeletal: Unremarkable Integumentary: Unremarkable Neurological: Unremarkable Physical Examination - Vital Signs Temperature: 98.4 F Blood Pressure: 133/84 Pulse: 113 Respirations: 19 Pulse Ox (%): 92 - Physical Exam General: Alert, In no apparent distress, Oriented x3 HEENT: Atraumatic, Normocephalic, PERRLA Neck: Supple, No Thyromegaly Respiratory: Clear to auscultation bilaterally, Normal air movement Cardiovascular: No edema, Normal pulses, Other (Intermittent tachycardia) Capillary refill: <2 Seconds Gastrointestinal: Normal bowel sounds, Soft and benign, Non-distended Musculoskeletal: No swelling, No erythema, No tenderness Integumentary: No rashes, No breakdown, No significant lesion Neurological: Normal gait, Normal speech, Normal tone - Studies Laboratory Data (last 24 hrs) 11/30/19 10:40: PT 14.4 H, INR 1.23 11/30/19 10:40: WBC 12.2 H, Hgb 12.8 L, Hct 37.6 L, Plt Count 405 11/30/19 10:40: Sodium 139, Potassium 2.5 L*, BUN 10, Creatinine 0.98, Glucose 151 H, Magnesium 1.8, Total Bilirubin 0.6, AST 10 L, ALT 11 L, Alkaline Phosphatase 57 Assessment And Plan - Plan Impression: Acute new onset atrial fibrillation with RVR: Urinary tract infection: Crohn's disease: Hypotension: Hypokalemia: Alcohol abuse: Nicotine abuse: Plan: Acute new onset atrial fibrillation with RVR: Improving. This is a new finding for the patient. Continue metoprolol 25 mg p.o. b.i.d. Cardiology is consulted. Echocardiogram complete. Results pending. Continue telemetry. Full-dose Lovenox. Will await recommendations from Cardiology. Urinary tract infection: Patient's UA shows positive leukocyte esterase, nitrite and white cell count greater than 50. Patient was started on IV Rocephin and will be switched over to p.o. on discharge. Patient has an extensive history of BPH and is seen by a urologist. Scheduled a follow-up with his urologist on Wednesday of next week. Crohn's disease: Patient is currently on Humira for Crohn's disease. States he usually has loose stools. Have baseline. Hypotension: Mostly resolved. Blood pressure of 133/65 this morning. Likely resulting from poor fluid intake, alcohol abuse, chronic diarrhea from Crohn's disease and new onset atrial fibrillation. Patient received IV fluids in the ER which improved his blood pressure. Will continue to monitor and adjust fluid in take accordingly. Will await Cardiology recommendations 1st. Hypokalemia: Potassium of 3.1 this morning. Likely secondary to chronic diarrhea. Will replace as necessary. Alcohol abuse: Admits to drinking a 6 pack of beer a day but states that he will go a week without drinking anything. Counseled greater than 15 min. Nicotine abuse: Patient states he smokes a pack of cigarettes every day. Patient does not want a nicotine patch at this time. Discharge Plan: Home Plan to discharge in: 24 Hours - Code Status/Comfort Care Code Status Assessed: Yes Physician Review Additional Text: Patient was seen and findings were discussed Agrees with the assessment and plan as documented by the JESSIKA Time Spent Managing PTS Care (In Minutes): 45
--- NOTE | 2019-12-01 11:14 | P.DS ---
Admission Date: 11/30/19 Discharge Date: 12/01/19 Reason for Admission: New onset AFib with RVR Consultations: Cardiology-Dr. Calvo Procedures: Echo Brief History of Present Illness: 73-year-old male with a past medical history of Crohn's disease, BPH and alcohol abuse presents to the emergency room complaining of ground level fall. Patient states that he fell from an upright position while standing. It happened acutely today and states he has never had issues like this in the past. Denies any loss of consciousness. States she did not sustain an obvious injury. Patient states he was headed to the urologist office when this happened. States that he was walking and tripped and after the fall could not get up. That is when he called 911. Patient states that 1 EMS arrived and helped him get up he felt weak and fatigued. Patient was brought to the ER via EMS. On examination in the ER patient is found to be in abnormal rhythm of atrial fibrillation and with RVR. Patient states is a new finding. Patient is alert and oriented x4 and in no distress. He is not requiring O2 support. Patient was also noted to be hypotensive on arrival to the ED. He was bolused with IV fluids which improved his blood pressure. Latest blood pressure reading was 121/53 with a heart rate ranging between 96 and 115. Patient was also given metoprolol 25 mg p.o. which helped the heart rate. Blood work shows hypokalemia with a potassium level of 2.5 on arrival. Currently being replaced with 20 IV and 40 p.o. of potassium. Patient will be placed in observation and further evaluated. Will consult Cardiology. Hospital Course: During this hospital course patient was admitted for new onset atrial fibrillation with RVR. He was also noted to be hypotensive on admission. This was likely a combination of dehydration as well as abnormal cardiac rhythm. His blood pressure improved after IV fluids in the ED and has stabilized on this admission. Last blood pressure reading was 133/65. He was placed on telemetry, started on a beta osito and monitored. Patient tolerated beta-osito well. Cardiology was consulted. Patient also had an echocardiogram. Cardiology reviewed echocardiogram and started patient on metoprolol 25 mg b.i.d.. His heart rate has improved at rest and he is tolerating beta-osito well. Patient's rate has been better controlled and per Cardiology recommendations patient is stable for discharge. Patient has not had any lightheadedness since admission. His blood pressure has stabilized after IV fluids. Patient was also counseled on his alcohol abuse have verbalize understanding. Instructed to follow up with Dr. Calvo in 1 week. Patient agreeable and verbalized understanding. Patient can be discharged home today. <Henrique Cheng - Last Filed: 12/01/19 11:08> Admission Date: 11/30/19 Discharge Date: 12/01/19 <Gaetano Barcenas - Last Filed: 12/01/19 12:46> Disposition: ROUTINE DISCHARGE Discharge Condition: GOOD Vital Signs/Physical Exam: Temp Pulse Resp BP Pulse Ox 98.4 F 113 H 19 133/84 92 12/01/19 10:57 12/01/19 10:57 12/01/19 10:57 12/01/19 10:57 12/01/19 10:57 General: Alert, In no apparent distress, Oriented x3 HEENT: Atraumatic, Normocephalic, PERRLA Neck: Supple, No Thyromegaly Respiratory: Clear to auscultation bilaterally, Normal air movement Cardiovascular: No edema, Normal pulses, Regular rate/rhythm, Normal S1 S2 Capillary refill: <2 Seconds Gastrointestinal: Normal bowel sounds, Soft and benign, Non-distended Musculoskeletal: No clubbing, No swelling, No contractures Integumentary: No rashes, No breakdown, No significant lesion, No tenderness/swelling Neurological: Normal gait, Normal speech, Normal strength at 5/5 x4 extr, Normal tone Laboratory Data at Discharge: WBC 9.4 K/uL (4.3-10.9) D 12/01/19 05:15 Hgb 11.7 g/dL (13.6-17.9) L 12/01/19 05:15 Hct 34.0 % (39.6-49.0) L 12/01/19 05:15 Plt Count 373 K/uL (152-406) 12/01/19 05:15 PT 14.4 SECONDS (9.5-12.5) H 11/30/19 10:40 INR 1.23 11/30/19 10:40 Sodium 141 mmol/L (136-145) 12/01/19 05:15 Potassium 3.1 mmol/L (3.5-5.1) L 12/01/19 05:15 BUN 10 mg/dL (7-18) 12/01/19 05:15 Creatinine 0.72 mg/dL (0.55-1.3) 12/01/19 05:15 Glucose 101 mg/dL (74-106) 12/01/19 05:15 Magnesium 2.0 mg/dL (1.8-2.4) 12/01/19 05:15 Total Bilirubin 0.6 mg/dL (0.2-1.0) 11/30/19 10:40 AST 10 U/L (15-37) L 11/30/19 10:40 ALT 11 U/L (12-78) L 11/30/19 10:40 Alkaline Phosphatase 57 U/L (45-117) 11/30/19 10:40 <Henrique Cheng - Last Filed: 12/01/19 11:08> Vital Signs/Physical Exam: Temp Pulse Resp BP Pulse Ox 98.4 F 80 19 145/80 H 92 12/01/19 10:57 12/01/19 12:00 12/01/19 10:57 12/01/19 11:21 12/01/19 10:57 Laboratory Data at Discharge: WBC 9.4 K/uL (4.3-10.9) D 12/01/19 05:15 Hgb 11.7 g/dL (13.6-17.9) L 12/01/19 05:15 Hct 34.0 % (39.6-49.0) L 12/01/19 05:15 Plt Count 373 K/uL (152-406) 12/01/19 05:15 PT 14.4 SECONDS (9.5-12.5) H 11/30/19 10:40 INR 1.23 11/30/19 10:40 Sodium 141 mmol/L (136-145) 12/01/19 05:15 Potassium 3.1 mmol/L (3.5-5.1) L 12/01/19 05:15 BUN 10 mg/dL (7-18) 12/01/19 05:15 Creatinine 0.72 mg/dL (0.55-1.3) 12/01/19 05:15 Glucose 101 mg/dL (74-106) 12/01/19 05:15 Magnesium 2.0 mg/dL (1.8-2.4) 12/01/19 05:15 Total Bilirubin 0.6 mg/dL (0.2-1.0) 11/30/19 10:40 AST 10 U/L (15-37) L 11/30/19 10:40 ALT 11 U/L (12-78) L 11/30/19 10:40 Alkaline Phosphatase 57 U/L (45-117) 11/30/19 10:40 <Gaetano Barcenas - Last Filed: 12/01/19 12:46> Patient Discharge Instructions: Review beta-osito medication. Instruct patient to follow up with Dr. Calvo in 1 week. Diet: Regular Activity: Ad meghan Time spent managing pt's care (in minutes): 55 <Henrique Cheng - Last Filed: 12/01/19 11:08> Physician Review: Patient Assessed, Agree with Above Assessment and Plan (Patient was seen and examined and findings were discussed Agree with the assessment and plan as documented by the JESSIKA) <Gaetano Barcenas - Last Filed: 12/01/19 12:46> Home Medications: Atorvastatin Calcium [Lipitor*] 20 mg PO BEDTIME 11/30/19 Metoprolol Tartrate [Lopressor*] 25 mg PO BID 6AM 6PM 30 Days #60 tab 12/01/19 New Medications: Metoprolol Tartrate [Lopressor*] 25 mg PO BID 6AM 6PM 30 Days #60 tab Followup: Richie Calvo MD [ACTIVE - CAN ADMIT] - 1 Week (Call to make an appointment. )
[2019-12-01 11:22] VITALS: BP 145/80
--- NOTE | 2019-12-01 11:37 | ECHO ---
HEIGHT: 5 ft 8 in WEIGHT: 162 lb 12.8 oz DATE OF STUDY: 11/30/[address]: Henrique Cheng 2-DIMENSIONAL: YES M.MODE: YES DOPPLER: YES COLOR FLOW: YES TDS: NO PORTABLE: YES DEFINITY: NO BUBBLE STUDY: NO DIAGNOSIS: NEW ONSET ATRIAL FIBRILLATION WITH RAPID VENTRICULAR RESPONSE CARDIAC HISTORY: CATHERIZATION: NO SURGERY: NO PROSTHETIC VALVE: NO PACEMAKER: NO MEASUREMENTS (cm) DIASTOLIC (NORMALS) SYSTOLIC (NORMALS) IVSd 0.9 (0.6-1.2) LA Diam 3.0 (1.9-4.0) LVEF 58% LVIDd 4.2 (3.5-5.7) LVIDs 3.0 (2.0-3.5) %FS 30% LVPWd 1.1 (0.6-1.2) Ao Diam 2.8 (2.0-3.7) 2 DIMENSIONAL ASSESSMENT: RIGHT ATRIUM: NORMAL LEFT ATRIUM: NORMAL RIGHT VENTRICLE: NORMAL LEFT VENTRICLE: NORMAL TRICUSPID VALVE: MITRAL VALVE: PULMONIC VALVE: NORMAL AORTIC VALVE: NORMAL PERICARDIAL EFFUSION: NONE AORTIC ROOT: NORMAL LEFT VENTRICULAR WALL MOTION: NORMAL DOPPLER/COLOR FLOW: NORMAL COMMENTS: NORMAL LEFT VENTRICULAR EJECTION FRACTION 55-60% WITH NORMAL WALL MOTION. ATRIAL FIBRILLATION. MILD MITRAL AND TRICUSPID REGURGITATION. TECHNOLOGIST: Francisco Javier ARCHER
[2019-12-01] MEDS ORDERED: METOPROLOL TAR 25 MG TAB PO SCH (18:00)
== END 2019-12-01 13:05 | disposition home or self-care (01) ==
LOC: ER 10:13 → ERHOLD 13:02 → 2ND 15:03
PROVIDERS: ADMIT Family Medicine; ATTEND Family Medicine
DX: I48.91 Unspecified atrial fibrillation (principal); I95.9 Hypotension, unspecified; K50.90 Crohn's disease, unspecified, without complications; E87.6 Hypokalemia; N39.0 Urinary tract infection, site not specified; N40.0 Benign prostatic hyperplasia without lower urinary tract symptoms; F10.10 Alcohol abuse, uncomplicated; Z71.41 Alcohol abuse counseling and surveillance of alcoholic; F17.210 Nicotine dependence, cigarettes, uncomplicated; W01.0XXA Fall on same level from slipping, tripping and stumbling without subsequent striking against object, initial encounter; Y92.89 Other specified places as the place of occurrence of the external cause; Z11.59 Encounter for screening for other viral diseases
CPT/HCPCS: 96365; 96361; 93005 ×2; 93306; 87088; 85025 ×2; 87086; 80048 ×2; 36415; 83735 ×2; 84132; 85610; 80076; 84443; 87077 ×2; 87186 ×2; 84484; 84439; 83880; 71045; 96372; 99285; 96366; J3480 ×3; J0696; J7050; J7030 ×2; G0378 ×3; 81003; 81015

== ENCOUNTER 2019-12-22 09:04 | Day surgery (SDC) | payer OTHER ==
[2019-12-22] MEDS ORDERED: LIDOCAINE 1% 20 ML MDV ONE (10:34)
[2019-12-22 17:30] VITALS: TEMP 97.6
[2019-12-22 17:39] VITALS: BP 170/85; O2SAT 95
== END 2019-12-22 10:51 | disposition home or self-care (01) ==
LOC: DS 09:04
PROVIDERS: ATTEND Urology
PROC: 0T9B30Z Drainage of Bladder with Drainage Device, Percutaneous Approach (ICD-10-PCS; principal; 2019-12-22)
DX: N40.1 Benign prostatic hyperplasia with lower urinary tract symptoms (principal); R33.8 Other retention of urine; R39.12 Poor urinary stream; N39.0 Urinary tract infection, site not specified; N42.9 Disorder of prostate, unspecified; Z79.899 Other long term (current) drug therapy